=== PATIENT | female | born 1935 | race Caucasian/White ===

== ENCOUNTER 2016-08-31 16:05 | Inpatient (IN) | payer MEDICARE, OTHER ==
[~2016-08-31] VITALS: Ht 165.1 cm; Wt 65.3 kg
[~2016-08-31 16:05] MED LIST: ACETAMINOPHEN-1 EAC2 ORAL; CEPHALEXIN500 MG ORAL; CIPROFLOXACIN500 M2 ORAL; FIRST-BXN MOUT237 ML; FLUCONAZOLE150 MG ORAL; HUMIRA40 MG/0.8 SUBQ; KEFLEX500 MG ORAL; LACTULOSE20 GM/301 ORAL; METRONIDAZOLE500 MG ORAL; NKM; NORCO 5-325 TA1 EACH ORAL; TYLENOL #21 EA ORAL; VICODIN1 TA1 PO; VITAMIN D400 INTLU PO; [UNRECOGNIZED DRUG - OTHER] PO
[2016-08-31] MEDS ORDERED: HUMIRA40 MG/0.2 SUBQ ×2 (16:11→18:38)
[2016-08-31 16:15] VITALS: BP 119/65
--- NOTE | 2016-08-31 16:26 | Emergency Room Report ---
History of Present Illness General Chief Complaint: Dizziness Source: Patient, Significant Other, EMS Present Illness HPI The patient presents with weakness and altered mental status. Her blood pressure in the field was 80. Paramedics started a bolus of 250 of normal saline. She feels a little bit better at this time but still is weak and lethargic. The patient's had problems with hyponatremia in the past. She's never had problems with her blood pressure. She loses sodium in her urine. Her has been giving her sodium tablets. He is certain this is the problem. He denies benzos, narcotics, alcohol. Denies fever, chills, vomiting, diarrhea, dysuria. 2 weeks ago she had a procedure by Dr. Conway because she had some vaginal bleeding. She checked out okay according to the doctor at that time. The patient and spouse deny any pain or anxiety medication other than tylenol. No chest pain, palpitations, headache, rashes. She has chronic back pain and arthritis pain. She is legally blind.. Allergies: Coded Allergies: No Known Allergies (Unverified , 09/01/16) Patient History Past Medical History: see triage record Social History: Denies: smoking - former Social History Narrative Now: No Reviewed Nursing Documentation: PMH: Agreed, PSxH: Agreed Nursing Documentation-PMH Past Medical History: No History, Except For Hx Cardiac Problems: No - BLINDNESS Hx Hypertension: No - ARTHRITIS Hx Pacemaker: No - HYPONATREMIA Hx Asthma: No - RA Hx COPD: No Hx Cancer: No Hx Gastrointestinal Problems: Yes Hx Dialysis: No - HYPONATREMIA Hx Neurological Problems: Yes - RESTLESS LEGS Hx Cerebrovascular Accident: Yes Hx Seizures: No Hx Speech Problem: Yes - SINCE THE STROKE Hx Dizziness: Yes Review of Systems All Other Systems: negative except mentioned in HPI Physical Exam Vital Signs Date Time Temp Pulse Resp B/P Pulse Ox O2 Delivery O2 Flow Rate FiO2 08/31/16 15:48 58 20 92/46 100 Room Air Sp02 EP Interpretation: reviewed, normal General Appearance: no apparent distress, other - lethargic Head: normocephalic Eyes: bilateral eye Scleral Injection ENT: moist mucus membranes Neck: supple Respiratory: lungs clear, normal breath sounds Cardiovascular #1: regular rate, rhythm, no edema Cardiovascular #2: 2+ radial (R) Gastrointestinal: normal inspection, normal bowel sounds, non tender, no mass, non-distended Musculoskeletal: back normal, gait/station normal, normal range of motion Neurologic: alert, oriented x3, DTRs symmetric, sensory intact, motor weakness - diffuse, other - halting speech - lethargic Psychiatric: depressed affect, other - lethargy Skin: warm/dry, other - sallo Medical Decision Making Diagnostic Impression: Primary Impression: Hypotension (arterial) Qualified Codes: I95.9 - Hypotension, unspecified Additional Impression: Altered mental state Qualified Codes: R40.1 - Stupor ER Course Patient presents with lethargy and hypotension. Ddx; sepsis, dehydration, hyponatremia, occult infection, medication reaction amongst others. Non-focal neuro, doubt CT of head would be helpful. Emergent evaluation with labs, EKG. Treatment with IV hydration with NS and cardiac monitoring. Planned repeated evaluations. Labs with minimally low sodium and + tox for opiates. BP improved with hydration. No evidence of infectious source. still insisting the problem is her drinking tea which he believes causes hyponatremia. Patient now awake. BP improved. Needs continued monitoring to exclude cardiac cause. wants to take home. Explained need for further observation. now admits to tylenol codiene when told about + tox screen (much denial about why he denied this initially). Admit telemetry Dr. Diggs. Laboratory Tests Test 08/31/16 17:11 08/31/16 17:51 08/31/16 18:55 White Blood Count 6.6 K/UL (4.8-10.8) Red Blood Count 2.83 M/UL (4.20-5.40) L Hemoglobin 10.1 G/DL (12.0-16.0) L Hematocrit 27.9 % (37.0-47.0) L Mean Corpuscular Volume 99 FL (80-99) Mean Corpuscular Hemoglobin 35.8 PG (27.0-31.0) H Mean Corpuscular Hemoglobin Concent 36.4 G/DL (32.0-36.0) H Red Cell Distribution Width 13.3 % (11.6-14.8) Platelet Count 191 K/UL (150-450) Mean Platelet Volume 5.7 FL (6.5-10.1) L Neutrophils (%) (Auto) 49.9 % (45.0-75.0) Lymphocytes (%) (Auto) 41.4 % (20.0-45.0) Monocytes (%) (Auto) 6.7 % (1.0-10.0) Eosinophils (%) (Auto) 1.1 % (0.0-3.0) Basophils (%) (Auto) 0.9 % (0.0-2.0) Prothrombin Time 10.2 SEC (9.30-11.50) Prothrombin Time INR 1.0 (0.9-1.1) PTT 26 SEC (23-33) Lactic Acid Level 1.70 mmol/L (0.66-2.22) Troponin I < 0.30 ng/mL (<=0.30) Pro-B-Type Natriuretic Peptide 388 pg/mL (0-450) Urine Color Yellow Urine Appearance Slightly cloudy Urine pH 7 (4.5-8.0) Urine Specific [place] 1.010 (1.005-1.035) Urine Protein 2+ (NEGATIVE) H Urine Glucose (UA) Negative (NEGATIVE) Urine Ketones Negative (NEGATIVE) Urine Occult Blood 5+ (NEGATIVE) H Urine Nitrite Negative (NEGATIVE) Urine Bilirubin Negative (NEGATIVE) Urine Urobilinogen Normal MG/DL (0.0-1.0) Urine Leukocyte Esterase 2+ (NEGATIVE) H Urine RBC 5-10 /HPF (0 - 2) H Urine WBC 2-4 /HPF (0 - 2) Urine Squamous Epithelial Cells Few /LPF (NONE/OCC) Urine Bacteria Few /HPF (NONE) Urine Opiates Screen Positive (NEGATIVE) H Urine Barbiturates Screen Negative (NEGATIVE) Phencyclidine (PCP) Screen Negative (NEGATIVE) Urine Amphetamines Screen Negative (NEGATIVE) Urine Benzodiazepines Screen Negative (NEGATIVE) Urine Cocaine Screen Negative (NEGATIVE) Urine Marijuana (THC) Screen Negative (NEGATIVE) Sodium Level 134 mEQ/L (135-145) L Potassium Level 4.5 mEQ/L (3.4-4.9) Chloride Level 101 mEQ/L (98-107) Carbon Dioxide Level 21 mEQ/L (20-30) Anion Gap 12 (5-15) Blood Urea Nitrogen 18 mg/dL (7-23) Creatinine 0.8 mg/dL (0.5-0.9) Estimate Glomerular Filtration Rate mL/min (>60) Glucose Level 160 mg/dL (74-106) H Calcium Level 8.1 mg/dL (8.6-10.2) L Total Bilirubin < 0.2 mg/dL (0.0-1.2) Aspartate Amino Transferase (AST) 20 U/L (5-40) Alanine Aminotransferase (ALT) 16 U/L (3-33) Alkaline Phosphatase 75 U/L (35-104) Total Creatine Kinase 57 U/L (26-140) Total Protein 6.0 g/dL (6.6-8.7) L Albumin 2.8 g/dL (3.5-5.2) L Globulin 3.2 g/dL Albumin/Globulin Ratio 0.8 (1.0-2.7) L EKG Diagnostic Results Rate: normal Rhythm: NSR ST Segments: other - LVH with NSSTTW changes Rhythm Strip Diag. Results EP Interpretation: yes Rhythm: NSR, no PVC's, no ectopy Chest X-Ray Diagnostic Results EP Interpretation: Yes Findings: no consolidation, no effusion, no pneumothorax, no acute cardiopulmonary disease Number of Views: 1 Last Vital Signs Date Time Temp Pulse Resp B/P Pulse Ox O2 Delivery O2 Flow Rate FiO2 09/01/16 00:00 74 08/31/16 23:53 97.8 19 125/67 98 Room Air 08/31/16 22:06 21 Status: improved Disposition: ADMITTED INPATIENT Condition: Serious Brett Barksdale M.D. August 31, 2016 16:26
--- NOTE | 2016-08-31 17:16 | Diagnostic Imaging Report ---
Indications: Cough and shortness of breath Technique: Portable AP chest Findings: Comparison: 07/13/2015 Patient rotation limits evaluation. Cardiac silhouette remains upper limits of normal in size. Pulmonary vasculature remains within normal limits. Right lung remains clear.. Left costophrenic angle less distinct. Right remain sharp. Aortic arch calcification again noted. IMPRESSION: Decreased distinctness of left costophrenic angle likely secondary to patient rotation. Development of focal atelectasis, infiltrate, or pleural effusion not excludable. Upright PA and lateral chest radiographs with better inspiratory effort and optimal technique recommended for more complete evaluation. Stable chronic changes as described
[2016-08-31 17:53] LABS: BASOPHILS % (AUTO) 0.9 % (0.0-2.0); EOSINOPHILS % (AUTO) 1.1 % (0.0-3.0); LYMPHOCYTES % (AUTO) 41.4 % (20.0-45.0); MEAN CORPUSCULAR HEMOGLOBIN 35.8 PG (27.0-31.0); MEAN CORPUSCULAR HGB CONC 36.4 G/DL (32.0-36.0); MEAN CORPUSCULAR VOLUME 99 FL (80-99); MEAN PLATELET VOLUME 5.7 FL (6.5-10.1); MONOCYTES % (AUTO) 6.7 % (1.0-10.0); NEUTROPHILS % (AUTO) 49.9 % (45.0-75.0); PLATELET COUNT 191 K/UL (150-450); PROTHROMBIN TIME 10.2 SEC (9.30-11.50); RED BLOOD COUNT 2.83 M/UL (4.20-5.40); RED CELL DISTRIBUTION WIDTH 13.3 % (11.6-14.8); WHITE BLOOD COUNT 6.6 K/UL (4.8-10.8)
[2016-08-31 18:18] VITALS: BP 117/66
[2016-08-31] MEDS ORDERED: ACETAMINOPHEN-1 EAC4 ORAL (18:37)
[2016-08-31] MEDS ORDERED: PREMARIN42.5 GM VG (18:39)
[2016-08-31] MEDS ORDERED: FUROSEMIDE40 MG ORAL (18:40)
[2016-08-31] MEDS ORDERED: VESICARE10 MG ORAL (18:40)
[2016-08-31] MEDS ORDERED: GABAPENTIN600 MG ORAL (18:41)
[2016-08-31] MEDS ORDERED: PANTOPRAZOLE SO40 MG ORAL (18:43)
[2016-08-31] MEDS ORDERED: VOLTAREN100 G1 TP (18:46)
[2016-08-31] MEDS ORDERED: PRAMIPEXOLE D0.25 MG ORAL (18:46)
[2016-08-31] MEDS ORDERED: PROLIA60 MG/1 ML SUBQ (18:47)
[2016-08-31] MEDS ORDERED: TYLENOL325 MG ORAL (18:48)
[2016-08-31] MEDS ORDERED: SODIUM TABLET PO (18:49)
[2016-08-31 19:02] LABS: TROPONIN I < 0.30 ng/mL (<=0.30)
[2016-08-31 19:09] LABS: APPEARANCE,URINE SLIGHTLY CLOUDY; KETONES,URINE NEGATIVE (NEGATIVE); LEUKOCYTE ESTERASE ,URINE 2+ (NEGATIVE); NITRITE,URINE NEGATIVE (NEGATIVE); PH,URINE 7 (4.5-8.0); PROTEIN,URINE 2+ (NEGATIVE); UROBILINOGEN,URINE NORMAL MG/DL (0.0-1.0)
[2016-08-31 19:21] LABS: BACTERIA,URINE FEW /HPF; SQUAMOUS EPITHELIAL CELL,UR FEW /LPF (NONE/OCC)
[2016-08-31 19:34] LABS: ALANINE AMINOTRANSFERASE 16 U/L (3-33); ALBUMIN/GLOBULIN RATIO 0.8 (1.0-2.7); ANION GAP 12 (5-15); ASPARTATE AMINO TRANSFERASE 20 U/L (5-40); CALCIUM 8.1 mg/dL (8.6-10.2); CARBON DIOXIDE 21 mEQ/L (20-30); CHLORIDE 101 mEQ/L (98-107); CREATININE 0.8 mg/dL (0.5-0.9); HEMOLYSIS 4; POTASSIUM 4.5 mEQ/L (3.4-4.9); SODIUM 134 mEQ/L (135-145)
[2016-08-31 21:24] VITALS: BP 134/61
[2016-08-31] MEDS ORDERED: LORazepam Inj 2mg/ml 1ml IV PRN (21:30)
[2016-08-31] MEDS ORDERED: Nitroglycerin Subl 0.4mg tab (Bottle Of 25) SL PRN (21:30)
[2016-08-31] MEDS ORDERED: Mylanta II UD 30ml ORAL PRN (21:30)
[2016-08-31] MEDS ORDERED: Morphine Sulfate 2mg/ml Inj IVP PRN (21:30)
[2016-08-31] MEDS ORDERED: DuoNeb 0.5-3(2.5)mg/3ml neb HHN PRN (21:30)
[2016-08-31] MEDS ORDERED: Miralax 17gm pkt ORAL PRN (21:30)
--- NOTE | 2016-08-31 21:30 | Consultation ---
History of Present Illness General Date patient seen: August 31, 2016 Chief Complaint: Dizziness Referring physician: Dr. Fonseca Reason for Consultation: Inpatient management Present Illness HPI 81 year old female with hx of RA, on Humira, [place] [facility] CC of weakness and altered mental status. Her blood pressure in the field was 80. Paramedics started a bolus of 250 of normal saline. She feels a little bit better at this time but still is weak. The patient's had problems with hyponatremia in the past. She's never had problems with her blood pressure. She loses sodium in her urine. Her has been giving herself tablets. He is certain this is the problem. She takes lasix because she gets sometime "bloated if she drinks too much water." She was also found to be anemic and admitted to Telemetry for further work up. Allergies: Coded Allergies: ASPIRIN (Verified Allergy, Unknown, RASH, BRUISE, 06/25/11) Medication History Scheduled Furosemide* (Lasix*), 40 MG ORAL DAILY, (Reported) Gabapentin* (Gabapentin*), 600 MG ORAL DAILY, (Reported) Pantoprazole* (Pantoprazole*), 40 MG ORAL DAILY, (Reported) Pramipexole* (Mirapex*), 0.5 MG ORAL DAILY, (Reported) Solifenacin Succinate (Vesicare*), 10 MG ORAL DAILY, (Reported) Scheduled PRN Acetaminophen (Tylenol), 325 MG ORAL Q6H PRN for For Pain, (Reported) Acetaminophen With Codeine 300MG/60MG* (Acetaminophen With Codeine #4 Tab*), 1 TAB ORAL Q6H PRN for For Pain, (Reported) Miscellaneous Medications Adalimumab (Humira), 40 MG SUBQ, (Reported) Denosumab (Prolia), Unknown Dose SUBQ, (Reported) Diclofenac Sodium (Voltaren), Unknown Dose TP, (Reported) Estrogens Conjugated (Premarin), Unknown Dose VG, (Reported) [Sodium Tablet], Unknown Dose PO, (Reported) Patient History Healthcare decision maker Resuscitation status Advanced Directive on File Past Medical/Surgical History Past Medical/Surgical History: (1) Rheumatoid arteritis (2) Osteoporosis Review of Systems Constitutional: Reports: malaise, weakness Physical Exam General Appearance: WD/WN Lines, tubes and drains: peripheral, PICC HEENT: normocephalic, atraumatic Neck: non-tender, normal alignment Respiratory/Chest: chest wall non-tender, lungs clear Cardiovascular/Chest: normal peripheral pulses, normal rate Abdomen: normal bowel sounds, non tender Genitourinary/Rectal: normal genital exam Last 24 Hour Vital Signs Date Time Temp Pulse Resp B/P Pulse Ox O2 Delivery O2 Flow Rate FiO2 08/31/16 21:24 98.2 67 16 134/61 99 Room Air 08/31/16 18:18 98.2 66 20 117/66 100 Room Air 08/31/16 16:15 98.2 60 20 119/65 100 Room Air 08/31/16 15:48 58 20 92/46 100 Room Air Laboratory Tests Test 08/31/16 17:11 08/31/16 17:51 08/31/16 18:55 White Blood Count 6.6 K/UL (4.8-10.8) Red Blood Count 2.83 M/UL (4.20-5.40) L Hemoglobin 10.1 G/DL (12.0-16.0) L Hematocrit 27.9 % (37.0-47.0) L Mean Corpuscular Volume 99 FL (80-99) Mean Corpuscular Hemoglobin 35.8 PG (27.0-31.0) H Mean Corpuscular Hemoglobin Concent 36.4 G/DL (32.0-36.0) H Red Cell Distribution Width 13.3 % (11.6-14.8) Platelet Count 191 K/UL (150-450) Mean Platelet Volume 5.7 FL (6.5-10.1) L Neutrophils (%) (Auto) 49.9 % (45.0-75.0) Lymphocytes (%) (Auto) 41.4 % (20.0-45.0) Monocytes (%) (Auto) 6.7 % (1.0-10.0) Eosinophils (%) (Auto) 1.1 % (0.0-3.0) Basophils (%) (Auto) 0.9 % (0.0-2.0) Prothrombin Time 10.2 SEC (9.30-11.50) Prothromb Time International Ratio 1.0 (0.9-1.1) Activated Partial Thromboplast Time 26 SEC (23-33) Lactic Acid Level 1.70 mmol/L (0.66-2.22) Troponin I < 0.30 ng/mL (<=0.30) Pro-B-Type Natriuretic Peptide 388 pg/mL (0-450) Urine Color Yellow Urine Appearance Slightly cloudy Urine pH 7 (4.5-8.0) Urine Specific [place] 1.010 (1.005-1.035) Urine Protein 2+ (NEGATIVE) H Urine Glucose (UA) Negative (NEGATIVE) Urine Ketones Negative (NEGATIVE) Urine Occult Blood 5+ (NEGATIVE) H Urine Nitrite Negative (NEGATIVE) Urine Bilirubin Negative (NEGATIVE) Urine Urobilinogen Normal MG/DL (0.0-1.0) Urine Leukocyte Esterase 2+ (NEGATIVE) H Urine RBC 5-10 /HPF (0 - 2) H Urine WBC 2-4 /HPF (0 - 2) Urine Squamous Epithelial Cells Few /LPF (NONE/OCC) Urine Bacteria Few /HPF (NONE) Urine Opiates Screen Positive (NEGATIVE) H Urine Barbiturates Screen Negative (NEGATIVE) Phencyclidine (PCP) Screen Negative (NEGATIVE) Urine Amphetamines Screen Negative (NEGATIVE) Urine Benzodiazepines Screen Negative (NEGATIVE) Urine Cocaine Screen Negative (NEGATIVE) Urine Marijuana (THC) Screen Negative (NEGATIVE) Sodium Level 134 mEQ/L (135-145) L Potassium Level 4.5 mEQ/L (3.4-4.9) Chloride Level 101 mEQ/L (98-107) Carbon Dioxide Level 21 mEQ/L (20-30) Anion Gap 12 (5-15) Blood Urea Nitrogen 18 mg/dL (7-23) Creatinine 0.8 mg/dL (0.5-0.9) Estimat Glomerular Filtration Rate mL/min (>60) Glucose Level 160 mg/dL (74-106) H Calcium Level 8.1 mg/dL (8.6-10.2) L Total Bilirubin < 0.2 mg/dL (0.0-1.2) Aspartate Amino Transf (AST/SGOT) 20 U/L (5-40) Alanine Aminotransferase (ALT/SGPT) 16 U/L (3-33) Alkaline Phosphatase 75 U/L (35-104) Total Creatine Kinase 57 U/L (26-140) Total Protein 6.0 g/dL (6.6-8.7) L Albumin 2.8 g/dL (3.5-5.2) L Globulin 3.2 g/dL Albumin/Globulin Ratio 0.8 (1.0-2.7) L Height (Feet): 5 Height (Inches): 3.00 Weight (Pounds): 140 Medications Current Medications Medications (Trade) Dose Ordered Sig/Nusrat Route PRN Reason Start Time Stop Time Status Last Admin Dose Admin Sodium Chloride (Sodium Chloride 1000ml bag) 1,000 ml @ 300 mls/hr Q3H20M IV 08/31/16 16:15 09/30/16 16:14 08/31/16 19:37 Assessment/Plan Problem List: (1) Hypotension (arterial) ICD Codes: I95.9 - Hypotension, unspecified SNOMED: 66327512 Qualifiers: Qualified Codes: I95.9 - Hypotension, unspecified (2) Overuse of medication ICD Codes: Z91.14 - Patient's other noncompliance with medication regimen SNOMED: 274945137 (3) Rheumatoid arteritis ICD Codes: I00 - Rheumatic fever without heart involvement SNOMED: 478289429 (4) Anemia ICD Codes: D64.9 - Anemia, unspecified SNOMED: 789529687 (5) Osteoporosis ICD Codes: M81.0 - Age-related osteoporosis without current pathological fracture SNOMED: 92860385 Assessment/Plan echo iv fluids anemia w/u cardiac w/u dvt prophylaxis DELORIS FRYE August 31, 2016 21:30
[2016-08-31 21:58] VITALS: BP 139/75
[2016-08-31 23:53] VITALS: BP 125/67
[2016-09-01 04:20] VITALS: BP 120/66
[2016-09-01 07:21] LABS: PROTHROMBIN TIME 10.1 SEC (9.30-11.50)
[2016-09-01 07:23] LABS: BASOPHILS % (AUTO) 0.6 % (0.0-2.0); EOSINOPHILS % (AUTO) 1.5 % (0.0-3.0); LYMPHOCYTES % (AUTO) 45.9 % (20.0-45.0); MEAN CORPUSCULAR HEMOGLOBIN 33.4 PG (27.0-31.0); MEAN CORPUSCULAR HGB CONC 33.2 G/DL (32.0-36.0); MEAN CORPUSCULAR VOLUME 101 FL (80-99); MEAN PLATELET VOLUME 6.6 FL (6.5-10.1); MONOCYTES % (AUTO) 6.7 % (1.0-10.0); NEUTROPHILS % (AUTO) 45.3 % (45.0-75.0); PLATELET COUNT 198 K/UL (150-450); RED BLOOD COUNT 2.95 M/UL (4.20-5.40); RED CELL DISTRIBUTION WIDTH 13.7 % (11.6-14.8); WHITE BLOOD COUNT 6.3 K/UL (4.8-10.8)
[2016-09-01 07:37] LABS: LACTATE DEHYDROGENASE 246 U/L (135-230)
[2016-09-01 07:46] LABS: HEMOLYSIS 3; IRON 56 ug/dL (37-145); TOTAL IRON BINDING CAPACITY 241 ug/dL (250-400)
[2016-09-01 07:51] LABS: ALANINE AMINOTRANSFERASE 15 U/L (3-33); ALBUMIN/GLOBULIN RATIO 0.9 (1.0-2.7); ANION GAP 12 (5-15); ASPARTATE AMINO TRANSFERASE 21 U/L (5-40); CALCIUM 8.2 mg/dL (8.6-10.2); CARBON DIOXIDE 23 mEQ/L (20-30); CHLORIDE 103 mEQ/L (98-107); CHOLESTEROL 155 mg/dL (< 200); CHOLESTEROL/HDL RATIO 2.5 (3.3-4.4); CREATININE 0.8 mg/dL (0.5-0.9); HEMOLYSIS 4; LDL CHOLESTEROL (CALC.) 80 mg/dL (60-99); POTASSIUM 4.8 mEQ/L (3.4-4.9); SODIUM 138 mEQ/L (135-145)
[2016-09-01 07:59] VITALS: BP 119/56
[2016-09-01] MEDS: Pramipexole 0.5mg tab ORAL SCH (08:09)
[2016-09-01] MEDS: Solifenacin 10mg tab ORAL SCH (08:09)
[2016-09-01] MEDS: Heparin 5000 units/ml inj SUBQ SCH ×2 (08:11→21:36)
[2016-09-01 09:10] LABS: ERYTHROCYTE SEDIMENTATION RATE 78 MM/HR (0-42)
[2016-09-01 10:40] LABS: RETICULOCYTE COUNT 1.8 % (0.0-2.0)
[2016-09-01 10:55] LABS: BAND NEUTROPHILS % (MANUAL) 0 % (0-8); BASOPHILS % (MANUAL) 0 % (0-2); EOSINOPHILS % (MANUAL) 2 % (0-3); LYMPHOCYTES % (MANUAL) 44 % (20-45); NEUTROPHILS % (MANUAL) 43 % (45-75); PLATELET ESTIMATE ADEQUATE; PLATELET MORPHOLOGY NORMAL; TOTAL CELLS COUNTED 100
[2016-09-01 11:02] LABS: PATH BLOOD SMEAR/OMC SENT TO PATHOLOGIST
[2016-09-01 11:46] VITALS: BP 131/65
--- NOTE | 2016-09-01 13:18 | Pulmonology Progress Note ---
Assessment/Plan Problems: (1) Hypotension (arterial) (2) Overuse of medication (3) Rheumatoid arteritis (4) Anemia (5) Osteoporosis Assessment/Plan improving w/u in process check echo. wants to leave possibly AMA Subjective ROS Limited/Unobtainable: No Interval Events: asymptomatic, wants to go home Allergies: Coded Allergies: ASPIRIN (Verified Allergy, Unknown, RASH, BRUISE, 06/25/11) Objective Last 24 Hour Vital Signs Date Time Temp Pulse Resp B/P Pulse Ox O2 Delivery O2 Flow Rate FiO2 09/01/16 11:46 97.0 58 20 131/65 99 Room Air 09/01/16 08:00 63 09/01/16 07:59 97.0 63 20 119/56 100 Room Air 09/01/16 07:30 64 18 Room Air 21 09/01/16 04:20 98.3 56 18 120/66 99 Room Air 09/01/16 04:00 51 09/01/16 00:00 74 08/31/16 23:53 97.8 74 19 125/67 98 Room Air 08/31/16 23:42 97.8 08/31/16 22:07 61 08/31/16 22:06 69 18 Room Air 21 08/31/16 21:58 96.4 69 18 139/75 96 Room Air 08/31/16 21:34 98.2 67 16 134/61 99 Room Air 08/31/16 21:24 98.2 67 16 134/61 99 Room Air 08/31/16 18:18 98.2 66 20 117/66 100 Room Air 08/31/16 16:15 98.2 60 20 119/65 100 Room Air 08/31/16 15:48 58 20 92/46 100 Room Air Intake and Output 08/31/16 09/01/16 19:00 07:00 Intake Total 1000 ml Balance 1000 ml Intake Oral 0 ml IV Total 1000 ml # Voids 1 1 General Appearance: WD/WN HEENT: normocephalic, atraumatic Respiratory/Chest: chest wall non-tender, lungs clear Breasts: no masses Cardiovascular: normal peripheral pulses Abdomen: normal bowel sounds, soft, non tender Extremities: no cyanosis, no clubbing 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 Laboratory Tests 08/31/16 17:11: White Blood Count 6.6, Red Blood Count 2.83L, Hemoglobin 10.1L, Hematocrit 27.9L , Mean Corpuscular Volume 99, Mean Corpuscular Hemoglobin 35.8H, Mean Corpuscular Hemoglobin Concent 36.4H, Red Cell Distribution Width 13.3, Platelet Count 191, Mean Platelet Volume 5.7L, Neutrophils (%) (Auto) 49.9, Lymphocytes (%) (Auto) 41.4, Monocytes (%) (Auto) 6.7, Eosinophils (%) (Auto) 1.1, Basophils (%) (Auto) 0.9, Prothrombin Time 10.2, Prothromb Time International Ratio 1.0, Activated Partial Thromboplast Time 26, Lactic Acid Level 1.70, Troponin I < 0.30, Pro-B-Type Natriuretic Peptide 388 08/31/16 17:51: Urine Color Yellow, Urine Appearance Slightly cloudy, Urine pH 7, Urine Specific [place] 1.010, Urine Protein 2+H, Urine Glucose (UA) Negative, Urine Ketones Negative, Urine Occult Blood 5+H, Urine Nitrite Negative, Urine Bilirubin Negative, Urine Urobilinogen Normal, Urine Leukocyte Esterase 2+H, Urine RBC 5-10H, Urine WBC 2-4, Urine Squamous Epithelial Cells Few, Urine Bacteria Few, Urine Opiates Screen PositiveH, Urine Barbiturates Screen Negative , Phencyclidine (PCP) Screen Negative, Urine Amphetamines Screen Negative, Urine Benzodiazepines Screen Negative, Urine Cocaine Screen Negative, Urine Marijuana (THC) Screen Negative 08/31/16 18:55: Sodium Level 134L, Potassium Level 4.5, Chloride Level 101, Carbon Dioxide Level 21, Anion Gap 12, Blood Urea Nitrogen 18, Creatinine 0.8, Estimat Glomerular Filtration Rate , Glucose Level 160H, Calcium Level 8.1L, Total Bilirubin < 0.2, Aspartate Amino Transf (AST/SGOT) 20, Alanine Aminotransferase (ALT/SGPT) 16, Alkaline Phosphatase 75, Total Creatine Kinase 57, Total Protein 6.0L, Albumin 2.8L, Globulin 3.2, Albumin/Globulin Ratio 0.8L 09/01/16 05:31: White Blood Count 6.3, Red Blood Count 2.95L, Hemoglobin 9.9L, Hematocrit 29.7L , Mean Corpuscular Volume 101H, Mean Corpuscular Hemoglobin 33.4H, Mean Corpuscular Hemoglobin Concent 33.2, Red Cell Distribution Width 13.7, Platelet Count 198, Mean Platelet Volume 6.6, Neutrophils (%) (Auto) 45.3, Lymphocytes (% ) (Auto) 45.9H, Monocytes (%) (Auto) 6.7, Eosinophils (%) (Auto) 1.5, Basophils (%) (Auto) 0.6, Prothrombin Time 10.1, Prothromb Time International Ratio 1.0, Activated Partial Thromboplast Time 29, Sodium Level 138, Potassium Level 4.8, Chloride Level 103, Carbon Dioxide Level 23, Anion Gap 12, Blood Urea Nitrogen 14, Creatinine 0.8, Estimat Glomerular Filtration Rate , Glucose Level 98, Calcium Level 8.2L, Total Bilirubin 0.2, Aspartate Amino Transf (AST/SGOT) 21, Alanine Aminotransferase (ALT/SGPT) 15, Alkaline Phosphatase 68, Total Protein 6.0L, Albumin 2.9L, Globulin 3.1, Albumin/Globulin Ratio 0.9L, Differential Total Cells Counted 100, Neutrophils % (Manual) 43L, Lymphocytes % (Manual) 44, Monocytes % (Manual) 11H, Eosinophils % (Manual) 2, Basophils % (Manual) 0, Band Neutrophils 0, Platelet Estimate Adequate, Platelet Morphology Normal, Red Blood Cell Morphology Normal, Anisocytosis , Macrocytosis , Erythrocyte Sedimentation Rate 78H, Reticulocyte Count 1.8, Iron Level 56, Total Iron Binding Capacity 241L, Percent Iron Saturation 23, Unsaturated Iron Binding 185 , Lactate Dehydrogenase 246H, Triglycerides Level 61, Cholesterol Level 155, LDL Cholesterol 80, HDL Cholesterol 63H, Cholesterol/HDL Ratio 2.5L, Carcinoembryonic Antigen 3.9H, Vitamin B12 Level 625, Folate [Pending], Thyroid Stimulating Hormone (TSH) 4.260 Current Medications Medications (Trade) Dose Ordered Sig/Nusrat Route PRN Reason Start Time Stop Time Status Last Admin Dose Admin Acetaminophen (Tylenol) 650 mg Q4H PRN ORAL Fever/Headache/Mild Pain 09/01/16 11:00 10/01/16 10:59 09/01/16 10:53 Al Hydroxide/Mg Hydroxide (Mylanta II) 30 ml Q6H PRN ORAL dyspepsia 08/31/16 21:30 09/30/16 21:29 Albuterol/ Ipratropium (DuoNeb 0.5-3(2.5)mg/3ml) 3 ml Q4H PRN HHN Shortness of Breath 08/31/16 21:30 09/05/16 21:29 Clonidine HCl (Catapres) 0.1 mg Q4H PRN ORAL SBP>160 mmHg 08/31/16 21:30 09/30/16 21:29 Dextrose (Dextrose 50%) STAT PRN IV Hypoglycemia 08/31/16 21:30 09/30/16 21:29 Gabapentin (Neurontin) 600 mg DAILY ORAL 09/01/16 09:00 10/01/16 08:59 09/01/16 08:09 Heparin Sodium (Porcine) (Heparin 5000 units/ml) 5,000 units EVERY 12 HOURS SUBQ 09/01/16 09:00 10/01/16 08:59 09/01/16 08:11 Lorazepam (Ativan 2mg/ml 1ml) 0.5 mg Q4H PRN IV For Anxiety 08/31/16 21:30 09/07/16 21:29 Morphine Sulfate (Morphine Sulfate) 1 mg Q4H PRN IVP Severe Pain (Pain Scale 7-10) 08/31/16 21:30 09/07/16 21:29 Nitroglycerin (Ntg) 0.4 mg Q5M X 3 DOSES PRN SL Prn Chest Pain 08/31/16 21:30 09/30/16 21:29 Ondansetron HCl (Zofran) 4 mg Q6H PRN IVP Nausea & Vomiting 08/31/16 21:30 09/30/16 21:29 Polyethylene Glycol (Miralax) 17 gm HSPRN PRN ORAL Constipation 08/31/16 21:30 09/30/16 21:29 Pramipexole (Mirapex) 0.5 mg DAILY ORAL 09/01/16 09:00 10/01/16 08:59 09/01/16 08:09 Solifenacin (Vesicare) 10 mg DAILY ORAL 09/01/16 09:00 10/01/16 08:59 09/01/16 08:09 Temazepam (Restoril) 15 mg HSPRN PRN ORAL Insomnia 08/31/16 21:30 09/07/16 21:29 09/01/16 00:20 DELORIS FRYE September 01, 2016 13:18
[2016-09-01 15:32] VITALS: BP 115/59
--- NOTE | 2016-09-01 16:53 | Cardiac Electrophysiology PN ---
Subjective Subjective [id number] Objective Last 24 Hour Vital Signs Date Time Temp Pulse Resp B/P Pulse Ox O2 Delivery O2 Flow Rate FiO2 09/01/16 15:32 97.2 58 18 115/59 98 Room Air 09/01/16 12:00 59 09/01/16 11:46 97.0 58 20 131/65 99 Room Air 09/01/16 08:00 63 09/01/16 07:59 97.0 63 20 119/56 100 Room Air 09/01/16 07:30 64 18 Room Air 21 09/01/16 04:20 98.3 56 18 120/66 99 Room Air 09/01/16 04:00 51 09/01/16 00:00 74 08/31/16 23:53 97.8 74 19 125/67 98 Room Air 08/31/16 23:42 97.8 08/31/16 22:07 61 08/31/16 22:06 69 18 Room Air 21 08/31/16 21:58 96.4 69 18 139/75 96 Room Air 08/31/16 21:34 98.2 67 16 134/61 99 Room Air 08/31/16 21:24 98.2 67 16 134/61 99 Room Air 08/31/16 18:18 98.2 66 20 117/66 100 Room Air Intake and Output 08/31/16 09/01/16 19:00 07:00 Intake Total 1000 ml Balance 1000 ml Intake Oral 0 ml IV Total 1000 ml # Voids 1 1 Laboratory Tests Test 08/31/16 17:11 08/31/16 17:51 08/31/16 18:55 09/01/16 05:31 White Blood Count 6.6 K/UL (4.8-10.8) 6.3 K/UL (4.8-10.8) Red Blood Count 2.83 M/UL (4.20-5.40) L 2.95 M/UL (4.20-5.40) L Hemoglobin 10.1 G/DL (12.0-16.0) L 9.9 G/DL (12.0-16.0) L Hematocrit 27.9 % (37.0-47.0) L 29.7 % (37.0-47.0) L Mean Corpuscular Volume 99 FL (80-99) 101 FL (80-99) H Mean Corpuscular Hemoglobin 35.8 PG (27.0-31.0) H 33.4 PG (27.0-31.0) H Mean Corpuscular Hemoglobin Concent 36.4 G/DL (32.0-36.0) H 33.2 G/DL (32.0-36.0) Red Cell Distribution Width 13.3 % (11.6-14.8) 13.7 % (11.6-14.8) Platelet Count 191 K/UL (150-450) 198 K/UL (150-450) Mean Platelet Volume 5.7 FL (6.5-10.1) L 6.6 FL (6.5-10.1) Neutrophils (%) (Auto) 49.9 % (45.0-75.0) 45.3 % (45.0-75.0) Lymphocytes (%) (Auto) 41.4 % (20.0-45.0) 45.9 % (20.0-45.0) H Monocytes (%) (Auto) 6.7 % (1.0-10.0) 6.7 % (1.0-10.0) Eosinophils (%) (Auto) 1.1 % (0.0-3.0) 1.5 % (0.0-3.0) Basophils (%) (Auto) 0.9 % (0.0-2.0) 0.6 % (0.0-2.0) Prothrombin Time 10.2 SEC (9.30-11.50) 10.1 SEC (9.30-11.50) Prothromb Time International Ratio 1.0 (0.9-1.1) 1.0 (0.9-1.1) Activated Partial Thromboplast Time 26 SEC (23-33) 29 SEC (23-33) Lactic Acid Level 1.70 mmol/L (0.66-2.22) Troponin I < 0.30 ng/mL (<=0.30) Pro-B-Type Natriuretic Peptide 388 pg/mL (0-450) Urine Color Yellow Urine Appearance Slightly cloudy Urine pH 7 (4.5-8.0) Urine Specific [place] 1.010 (1.005-1.035) Urine Protein 2+ (NEGATIVE) H Urine Glucose (UA) Negative (NEGATIVE) Urine Ketones Negative (NEGATIVE) Urine Occult Blood 5+ (NEGATIVE) H Urine Nitrite Negative (NEGATIVE) Urine Bilirubin Negative (NEGATIVE) Urine Urobilinogen Normal MG/DL (0.0-1.0) Urine Leukocyte Esterase 2+ (NEGATIVE) H Urine RBC 5-10 /HPF (0 - 2) H Urine WBC 2-4 /HPF (0 - 2) Urine Squamous Epithelial Cells Few /LPF (NONE/OCC) Urine Bacteria Few /HPF (NONE) Urine Opiates Screen Positive (NEGATIVE) H Urine Barbiturates Screen Negative (NEGATIVE) Phencyclidine (PCP) Screen Negative (NEGATIVE) Urine Amphetamines Screen Negative (NEGATIVE) Urine Benzodiazepines Screen Negative (NEGATIVE) Urine Cocaine Screen Negative (NEGATIVE) Urine Marijuana (THC) Screen Negative (NEGATIVE) Sodium Level 134 mEQ/L (135-145) L 138 mEQ/L (135-145) Potassium Level 4.5 mEQ/L (3.4-4.9) 4.8 mEQ/L (3.4-4.9) Chloride Level 101 mEQ/L (98-107) 103 mEQ/L (98-107) Carbon Dioxide Level 21 mEQ/L (20-30) 23 mEQ/L (20-30) Anion Gap 12 (5-15) 12 (5-15) Blood Urea Nitrogen 18 mg/dL (7-23) 14 mg/dL (7-23) Creatinine 0.8 mg/dL (0.5-0.9) 0.8 mg/dL (0.5-0.9) Estimat Glomerular Filtration Rate mL/min (>60) mL/min (>60) Glucose Level 160 mg/dL (74-106) H 98 mg/dL (74-106) Calcium Level 8.1 mg/dL (8.6-10.2) L 8.2 mg/dL (8.6-10.2) L Total Bilirubin < 0.2 mg/dL (0.0-1.2) 0.2 mg/dL (0.0-1.2) Aspartate Amino Transf (AST/SGOT) 20 U/L (5-40) 21 U/L (5-40) Alanine Aminotransferase (ALT/SGPT) 16 U/L (3-33) 15 U/L (3-33) Alkaline Phosphatase 75 U/L (35-104) 68 U/L (35-104) Total Creatine Kinase 57 U/L (26-140) Total Protein 6.0 g/dL (6.6-8.7) L 6.0 g/dL (6.6-8.7) L Albumin 2.8 g/dL (3.5-5.2) L 2.9 g/dL (3.5-5.2) L Globulin 3.2 g/dL 3.1 g/dL Albumin/Globulin Ratio 0.8 (1.0-2.7) L 0.9 (1.0-2.7) L Differential Total Cells Counted 100 Neutrophils % (Manual) 43 % (45-75) L Lymphocytes % (Manual) 44 % (20-45) Monocytes % (Manual) 11 % (1-10) H Eosinophils % (Manual) 2 % (0-3) Basophils % (Manual) 0 % (0-2) Band Neutrophils 0 % (0-8) Platelet Estimate Adequate Platelet Morphology Normal Red Blood Cell Morphology Normal Anisocytosis Macrocytosis Erythrocyte Sedimentation Rate 78 MM/HR (0-42) H Reticulocyte Count 1.8 % (0.0-2.0) Iron Level 56 ug/dL (37-145) Total Iron Binding Capacity 241 ug/dL (250-400) L Percent Iron Saturation 23 % (15-50) Unsaturated Iron Binding 185 ug/dL (112-346) Lactate Dehydrogenase 246 U/L (135-230) H Triglycerides Level 61 mg/dL (< 150) Cholesterol Level 155 mg/dL (< 200) LDL Cholesterol 80 mg/dL (60-99) HDL Cholesterol 63 mg/dL (> 60) H Cholesterol/HDL Ratio 2.5 (3.3-4.4) L Carcinoembryonic Antigen 3.9 ng/mL H Vitamin B12 Level 625 pg/mL (211-946) Folate Pending Thyroid Stimulating Hormone (TSH) 4.260 uIU/mL (0.300-4.500) CHATA AVILES September 01, 2016 16:52
--- NOTE | 2016-09-01 17:08 | History & Physical ---
History and Physical History & Physicial Johnathon Diggs MD September 01, 2016 17:08
--- NOTE | 2016-09-01 18:28 | Diagnostic Imaging Report ---
APPROVED REPORT CPT Code: 22102 Present Symptoms Lower Extremity Edema: Bilateral BILATERAL: Imaging reveals a patent deep venous system bilaterally. There is no evidence of thrombus within the femoral, popliteal or tibial segments. The greater saphenous veins are also within normal limits. Doppler indicates normal spontaneous flow within these segments.
--- NOTE | 2016-09-01 18:29 | Diagnostic Imaging Report ---
APPROVED REPORT CPT Code: 72765 Vascular Symptoms CVA/TIA: Doppler Spectral Velocity Analysis RightLeft BILATERAL: CCA/BULB - Imaging reveals irregular, minimal plaque in both carotid bulbs. arteries. The Doppler spectral flow analysis is within normal limits throughout the internal and external carotid arteries. VERTEBRALS - Imaging reveals both vertebral arteries to be patent, without evidence of stenosis or steal.
--- NOTE | 2016-09-01 18:59 | Cardiology Report ---
APPROVED REPORT EKG Measurement Heart [id number] Sinus bradycardia Minimal voltage criteria for LVH, may be normal variant Borderline ECG
--- NOTE | 2016-09-01 19:17 | Cardiology Report ---
APPROVED REPORT EXAM: Two-dimensional and M-mode echocardiogram with Doppler and color Doppler. INDICATION Left ventricular function M-Mode DIMENSIONS IVSd0.9 (0.7-1.1cm)Left Atrium (MM)4.2 (1.6-4.0cm) LVDd4.7 (3.5-5.6cm)Aortic Root2.6 (2.0-3.7cm) PWd0.7 (0.7-1.1cm)Aortic Cusp Exc.1.6 (1.5-2.0cm) LVDs2.5 (2.5-4.0cm) PWs1.7 cm Technically difficult study due to poor acoustic windows. Normal left ventricular chamber size, systolic function and wall motion. Left ventricular ejection fraction estimated to be 60-65%. Mild left ventricular hypertrophy. Small posterior pericardial effusion. All other cardiac chamber sizes are within normal limits. Focal aortic valve sclerosis with adequate cusp excursion Thickened mitral valve leaflets with normal excursion. Mild mitral annulus and aortic root calcification. Pulmonic valve not well visualized. Normal tricuspid valve structure. IVC not obtainable. A color flow and spectral Doppler study was performed and revealed: Mild aortic regurgitation. No mitral regurgitation. Left ventricular diastolic dysfunction grade 1. Trace tricuspid regurgitation. Tricuspid systolic velocities suggests peak right ventricular systolic pressure of 11 mmHg Pulmonic regurgitation present.
[2016-09-01 20:10] VITALS: BP 127/75
--- NOTE | 2016-09-01 20:18 | General Progress Note ---
Progress Note Progress Note [id number] full note dictated SOMMER HAMEED September 01, 2016 20:18
[2016-09-02 00:23] VITALS: BP 144/74
--- NOTE | 2016-09-02 00:46 | Consultation ---
DATE OF CONSULTATION: 09/01/2016 CARDIOLOGY CONSULTATION CONSULTING PHYSICIAN: Luis Cummings M.D. REFERRING PHYSICIAN: Johnathon Diggs M.D. REASON FOR CONSULTATION: Hypotension and bradycardia on EKG. History Of Present Illness: The patient is a very pleasant 81-year-old lady with history of rheumatoid arthritis under the management of 00:20, who presented to [facility] emergency room for weakness and altered mental status. Her blood pressure in the telemetry was in the 80s. The patient received 250 mL of normal saline and felt slightly better. The patient apparently has been taking off and on Lasix for intent leg edema. The patient denies any hypertension or congestive heart failure or coronary artery disease. The patient apparently has been having vaginal bleeding for which she had seen a pilot plant operator and had an ultrasound that reportedly was negative. The patient also has history of hyponatremia for which she has been eating salt tablets. The patient underwent electrocardiogram that showed sinus bradycardia with a rate of 58. Her echocardiogram was performed today that showed normal left ventricular systolic function and ejection fraction of 55%. PAST MEDICAL HISTORY: Includes, 1. Rheumatoid arthritis. 2. Osteoporosis. MEDICATIONS: Per reconciliation. FAMILY HISTORY: Noncontributory. SOCIAL HISTORY: She lives with her . She does not smoke or drink alcohol. REVIEW OF SYSTEMS: Review of systems was thoroughly performed and was negative other than what is mentioned in the history of present illness. PHYSICAL EXAMINATION: VITAL SIGNS: Blood pressure is 111/59, pulse is 58, respirations 18, and she is afebrile. HEAD AND NECK: Showed no JVD or carotid bruits. LUNGS: Clear. CARDIOVASCULAR: Shows regular S1 and S2 with no gallop or murmur. ABDOMEN: Soft. EXTREMITIES: Trace pitting edema. LABORATORY DATA: Her labs show white count of 6.3, hemoglobin 9.9, hematocrit of 29.7, and platelet count is 198,000. Sodium 138, potassium 4.8, BUN of 14, creatinine 0.8, and glucose of 98. Her troponin was negative. Her urine toxicology was positive for opiates. INR is 1. ASSESSMENT AND PLAN: 1. Hypotension with a blood pressure in the 80s. This is likely due to dehydration, as the patient received Lasix. The blood pressure since then has improved without any specific intervention. The patient is not on any antihypertensive agents. Her echocardiogram showed normal left ventricular systolic function with no evidence of pericardial effusion. The patient would be hydrated on telemetry. We will check orthostatic vital signs every shift. 2. Rheumatoid arthritis. 3. Neuropathy, on gabapentin. Thank you very much, Dr. Diggs, for allowing me to participate in the care of this patient. Please do not hesitate to contact me for any questions regarding my evaluation. Luis Cummings M.D. DR: EWA JOB#: [id number] CC:
--- NOTE | 2016-09-02 02:46 | History and Physical Report ---
DATE OF ADMISSION: 08/31/2016 CHIEF COMPLAINT: Dizziness. HISTORY OF PRESENT ILLNESS: This is an 81-year-old very delightful female with past medical history significant for rheumatoid arthritis, history of chronic pedal edema, restless legs syndrome, and osteoporosis, who was presented to the emergency room after had a dizziness complained about weakness and altered mental status. The patient was found to have systolic blood pressure of 80s on the field. The paramedics was given a 250 bolus fluids. She probably better at that time and subsequently, the patient was transferred to the hospital. Shortly after initial evaluation in the emergency, the patient had a history of hyponatremia and was noted the patient on Lasix. The patient never had a problem with blood pressure in the past and only she lose the sodium in the urine. The patient has been on the sodium tablets at home as per request by her primary physician. The patient, however, drinks a lot of liquids mostly tea and the patient was found to be anemic and subsequently, the patient was admitted to telemetry due to the dizziness and hypotension. PAST MEDICAL HISTORY/PAST SURGICAL HISTORY: As above. History of restless legs syndrome, rheumatoid arthritis, chronic pedal edema, osteoporosis, urine incontinent, vaginal bleeding was recently evaluated by Dr. Peraza, including an invasive workup essentially was unremarkable. MEDICATIONS AT HOME: Significant for Lasix 40 mg daily, gabapentin 600 mg daily, Protonix 40 mg daily, Mirapex 0.5 daily, VESIcare 10 mg daily, Humira 40 mg subcutaneous daily, Prolia 60 mg every six months, Voltaren as well as Premarin and sodium tablets. ALLERGIES: No known drug allergies. SOCIAL HISTORY: No smoking, alcohol, or drugs. She lives with the , who is a caregiver for the patient. FAMILY HISTORY: Brother had a history of esophageal cancer with history of smoking. REVIEW OF SYSTEMS: Mostly as above. Denies any dysuria, frequency, or hematochezia. Denies any hemoptysis or hematochezia. 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 Denies any loss of consciousness. Denies any suicidal or homicidal ideation. Denies any bowel or urinary incontinence. The patient complained of malaise and fatigue. PHYSICAL EXAMINATION: VITAL SIGNS: Temperature 98.2 degrees, pulse of 67, respirations 16, initial blood pressure was 92/46, repeat one was 119/65. GENERAL: The patient is awake and responsive, no acute distress. HEENT: Head and Neck., pupils reactive to light. Anicteric. Poor vision and blindness. Neck was supple. No JVD. LUNGS: Good air entry. No wheezing or rales. HEART: S1 and S2. Bradycardic. ABDOMEN: Soft, nondistended, and nontender. Positive bowel sounds. EXTREMITIES: No cyanosis or clubbing. Positive +2 edema bilateral lower extremities. NEUROLOGIC: Cranial nerves II through XII are grossly intact. The patient moving all extremities. Gait is intact. LABORATORY AND DIAGNOSTIC DATA: On admission, WBC of 6.6, hemoglobin 10.1, hematocrit 27, MCV 99, and platelet 191,000. ESR 78. Reticulocyte count 1.8. PT of 10, INR 1.0, and PTT of 26. Sodium 134, potassium 4.5, chloride 101, bicarbonate 21, BUN 18, creatinine 0.8, and glucose 160. Lactic acid 1.70. Calcium is 8.1. Troponin less than 0.3. Total protein 6.0. Triglycerides 61. Total cholesterol is 155. Sodium is 134 and potassium 4.5. Urine drug screen is significant for opiates, otherwise all negative. Urinalysis, +2 protein, +5 occult blood, +2 leukocytes, and 5 to 10 RBC. The patient had EKG, which noted to be in a sinus gurdeep with a ventricular rate of 58. No ST elevation was noted. The patient was noted to have T-wave inversion in lead 3 and a Q-wave was noted in leads 1 and aVL. A 2D echo was noted to be normal left ventricular systolic function with ejection fraction 60 to 65%, trace aortic regurgitation, left ventricular diastolic dysfunction grade 1, this is a preliminary results and official report still pending. ASSESSMENT: 1. Syncopal episode most likely orthostatic hypotension. 2. Anemia. 3. Rheumatoid arthritis. 4. Restless legs syndrome. 5. Hyponatremia. 6. Chronic pedal edema. 7. Osteoporosis. 8. Bradycardia. PLAN: Admit the patient to telemetry. We will follow up with Dr. Cummings consultation from Cardiology Electrophysiology and Dr. Griffin, Pulmonary Critical Care. Gentle hydration. Monitor laboratory. Orthostatic hypotension. Duplex of lower extremity. If the patient's status improved consider discharge home to be followed by as outpatient. DVT prophylaxis. Heparin subcutaneous. CODE STATUS: Full Code. Discussed with the extensively at the bedside. Johnathon Diggs M.D. DR: William JOB#: [id number] CC:
[2016-09-02 04:09] VITALS: BP 130/79
--- NOTE | 2016-09-02 06:16 | Consultation ---
DATE OF CONSULTATION: 09/01/2016 NEPHROLOGY CONSULTATION REFERRING PHYSICIAN: Johnathon Diggs M.D. REASON FOR CONSULTATION: Electrolyte abnormality. 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 She presented to [facility] for weakness and altered mental status. In the ER, the patient was found to have hypotension. The patient received a bolus of normal saline. She was consequently admitted in the hospital. Apparently, the patient has a history of hyponatremia and was taking a salt tablet at home, but she was brought in to the ER. In the ER, the patient was found to be mildly hypokalemic and hyponatremic. I was called for management of renal disease and electrolyte imbalance. ALLERGIES: She has allergies to aspirin. MEDICATION: At home including Lasix 40 mg p.o. daily, gabapentin 600 mg p.o. daily, Protonix 40 mg p.o. daily, Mirapex 0.5 mg p.o. daily, Vesicare 10 mg p.o. daily and Tylenol 650 mg q.6 hours p.r.n. pain. SOCIAL HISTORY: She lives at home. Very supportive who was at the bedside and is taking care of her at home. Primary doctor is . REVIEW OF SYSTEMS: General: She complained of generalized weakness. Denied any fever, chills, or night sweats. Head And Neck: Denies any dysphagia, odynophagia, blurry vision, headache, or neck stiffness. Pulmonary: Denies any shortness of breath, cough, or sputum. Cardiovascular: Denies any chest pain or palpitations. Gastrointestinal: Denies any nausea, vomiting, or diarrhea. No hematemesis. No hematochezia. She currently denies any dysuria, frequency, or hematuria. Musculoskeletal: She complained of lower extremity edema and weakness all over. Denies any localized weakness or numbness. PAST SURGICAL HISTORY: History of laser surgery on both eyes for retinal detachment. FAMILY HISTORY: Noncontributory. PHYSICAL EXAMINATION: VITAL SIGNS: The patient has a temperature of 98.0 degrees, blood pressure of 134/61, pulse rate of 67, and respiratory rate of 18. HEAD AND NECK: No JVP. No LAD. No thyromegaly. Extraocular movement intact. Pupils are reactive to light and accommodation. LUNGS: Clear to auscultation. CARDIAC: Regular rate and rhythm. S1-S2. No murmur. No rub. ABDOMEN: Soft, nontender, and nondistended. No organomegaly. EXTREMITIES: Trace edema. No clubbing. No cyanosis. NEUROLOGIC: Cranial nerves II to XII were within normal limits. Upper and lower extremities are grossly intact. LABORATORY STUDIES: On admission, the patient has sodium 134, potassium 4.5, chloride 101, bicarbonate 21, BUN 18, creatinine 0.8, and glucose of 116. Calcium of 8.1. The patient had an AST of 21, ALT of 15, alkaline phosphatase of 68, total protein of 6, and albumin of 2.9. Cholesterol of 155, HDL of 63, and LDL of 80. TSH is 4.2. CBC revealed WBC count of 6, hemoglobin of 10.1, hematocrit of 27, and platelet count of 191,000. Urine revealed specific gravity of 1010, protein 2+, blood 5+, leukocyte esterase 2+ and RBC of 5 to 10. ASSESSMENT: 1. Mild hyponatremia. 2. Hypocalcemia. 3. Hematuria. 4. Proteinuria. 5. Urinary tract infection. 6. Dehydration and hypotension. PLAN: Plan for the patient is to continue with normal saline. Check the random urine protein creatinine ratio to calculate the proteinuria. Check the urine, sodium and creatinine to calculate fractional excretion of sodium. Replace her electrolyte as needed. Check the vitamin D level for evaluation of hypocalcemia. Again, I would like to thank, Dr. Diggs, for allowing me to participate in the care of this patient. Chrissy Owens M.D. DR: OMARI JOB#: [id number] CC:
[2016-09-02 07:54] LABS: BASOPHILS % (AUTO) 0.6 % (0.0-2.0); EOSINOPHILS % (AUTO) 1.9 % (0.0-3.0); MEAN CORPUSCULAR HEMOGLOBIN 33.5 PG (27.0-31.0); MEAN CORPUSCULAR HGB CONC 33.5 G/DL (32.0-36.0); MEAN CORPUSCULAR VOLUME 100 FL (80-99); MEAN PLATELET VOLUME 6.2 FL (6.5-10.1); MONOCYTES % (AUTO) 6.8 % (1.0-10.0); NEUTROPHILS % (AUTO) 41.7 % (45.0-75.0); PLATELET COUNT 194 K/UL (150-450); RED BLOOD COUNT 2.98 M/UL (4.20-5.40); RED CELL DISTRIBUTION WIDTH 13.7 % (11.6-14.8); WHITE BLOOD COUNT 5.5 K/UL (4.8-10.8)
[2016-09-02 08:13] LABS: ALANINE AMINOTRANSFERASE 15 U/L (3-33); ALBUMIN/GLOBULIN RATIO 0.8 (1.0-2.7); ANION GAP 10 (5-15); ASPARTATE AMINO TRANSFERASE 18 U/L (5-40); CALCIUM 8.3 mg/dL (8.6-10.2); CARBON DIOXIDE 24 mEQ/L (20-30); CHLORIDE 103 mEQ/L (98-107); CREATININE 0.9 mg/dL (0.5-0.9); HEMOLYSIS 0; MAGNESIUM 2.1 mg/dL (1.7-2.5); PHOSPHORUS 2.6 mg/dL (2.5-4.8); POTASSIUM 4.5 mEQ/L (3.4-4.9); SODIUM 137 mEQ/L (135-145); TOTAL PROTEIN 6.2 g/dL (6.6-8.7)
[2016-09-02] MEDS: Pramipexole 0.5mg tab ORAL SCH (09:15)
[2016-09-02] MEDS: Solifenacin 10mg tab ORAL SCH (09:15)
[2016-09-02] MEDS: Heparin 5000 units/ml inj SUBQ SCH (09:17)
[2016-09-02 09:44] LABS: THYROID STIMULATING HORMONE 1.67 uIU/mL (0.300-4.500)
--- NOTE | 2016-09-02 10:14 | Pulmonology Progress Note ---
Assessment/Plan Problems: (1) Hypotension (arterial) (2) Overuse of medication (3) Rheumatoid arteritis (4) Anemia (5) Osteoporosis Assessment/Plan improving w/u in process check echo. all noted BP stable hold lasix Subjective ROS Limited/Unobtainable: No Constitutional: Reports: no symptoms HEENT: Repors: no symptoms Respiratory: Reports: no symptoms Allergies: Coded Allergies: No Known Allergies (Unverified , 09/01/16) Objective Last 24 Hour Vital Signs Date Time Temp Pulse Resp B/P Pulse Ox O2 Delivery O2 Flow Rate FiO2 09/02/16 08:00 61 60 74 09/02/16 04:09 98.4 61 18 130/79 95 Room Air 09/02/16 04:00 61 09/02/16 00:23 98.1 66 19 144/74 95 09/02/16 00:00 107 09/01/16 20:12 72 72 82 09/01/16 20:10 98.5 72 18 127/75 93 Room Air 09/01/16 20:00 73 09/01/16 19:16 75 20 Room Air 21 09/01/16 18:09 64 65 63 09/01/16 16:00 59 09/01/16 15:32 97.2 58 18 115/59 98 Room Air 09/01/16 12:00 59 09/01/16 11:46 97.0 58 20 131/65 99 Room Air Intake and Output 09/01/16 09/02/16 19:00 07:00 Intake Total 360 ml Balance 360 ml Intake Oral 360 ml # Voids 3 2 General Appearance: WD/WN HEENT: normocephalic, atraumatic Respiratory/Chest: chest wall non-tender, lungs clear Cardiovascular: normal peripheral pulses, normal rate Abdomen: normal bowel sounds, soft, non tender Genitourinary: normal external genitalia Extremities: no cyanosis Skin: no lesions Neurologic/Psychiatric: corner former II-XII grossly normal Laboratory Tests 09/02/16 07:07: White Blood Count 5.5, Red Blood Count 2.98L, Hemoglobin 10.0L, Hematocrit 29.8L , Mean Corpuscular Volume 100H, Mean Corpuscular Hemoglobin 33.5H, Mean Corpuscular Hemoglobin Concent 33.5, Red Cell Distribution Width 13.7, Platelet Count 194, Mean Platelet Volume 6.2L, Neutrophils (%) (Auto) 41.7L, Lymphocytes (%) (Auto) 49.0H, Monocytes (%) (Auto) 6.8, Eosinophils (%) (Auto) 1.9, Basophils (%) (Auto) 0.6, Sodium Level 137, Potassium Level 4.5, Chloride Level 103, Carbon Dioxide Level 24, Anion Gap 10, Blood Urea Nitrogen 12, Creatinine 0.9, Estimat Glomerular Filtration Rate , Glucose Level 89, Calcium Level 8.3L, Phosphorus Level 2.6, Magnesium Level 2.1, Total Bilirubin 0.2, Aspartate Amino Transf (AST/SGOT) 18, Alanine Aminotransferase (ALT/SGPT) 15, Alkaline Phosphatase 63, Pro-B-Type Natriuretic Peptide 565H, Total Protein 6.2L, Albumin 2.8L, Globulin 3.4, Albumin/Globulin Ratio 0.8L, Thyroid Stimulating Hormone (TSH) 1.670, Free Thyroxine 1.25 Current Medications Medications (Trade) Dose Ordered Sig/Nusrat Route PRN Reason Start Time Stop Time Status Last Admin Dose Admin Acetaminophen (Tylenol) 650 mg Q4H PRN ORAL Fever/Headache/Mild Pain 09/01/16 11:00 10/01/16 10:59 09/02/16 04:11 Al Hydroxide/Mg Hydroxide (Mylanta II) 30 ml Q6H PRN ORAL dyspepsia 08/31/16 21:30 09/30/16 21:29 Albuterol/ Ipratropium (DuoNeb 0.5-3(2.5)mg/3ml) 3 ml Q4H PRN HHN Shortness of Breath 08/31/16 21:30 09/05/16 21:29 Clonidine HCl (Catapres) 0.1 mg Q4H PRN ORAL SBP>160 mmHg 08/31/16 21:30 09/30/16 21:29 Dextrose (Dextrose 50%) STAT PRN IV Hypoglycemia 08/31/16 21:30 09/30/16 21:29 Gabapentin (Neurontin) 600 mg DAILY ORAL 09/01/16 09:00 10/01/16 08:59 09/02/16 09:15 Heparin Sodium (Porcine) (Heparin 5000 units/ml) 5,000 units EVERY 12 HOURS SUBQ 09/01/16 09:00 10/01/16 08:59 09/02/16 09:17 Lorazepam (Ativan 2mg/ml 1ml) 0.5 mg Q4H PRN IV For Anxiety 08/31/16 21:30 09/07/16 21:29 Morphine Sulfate (Morphine Sulfate) 1 mg Q4H PRN IVP Severe Pain (Pain Scale 7-10) 08/31/16 21:30 09/07/16 21:29 Nitroglycerin (Ntg) 0.4 mg Q5M X 3 DOSES PRN SL Prn Chest Pain 08/31/16 21:30 09/30/16 21:29 Ondansetron HCl (Zofran) 4 mg Q6H PRN IVP Nausea & Vomiting 08/31/16 21:30 09/30/16 21:29 Polyethylene Glycol (Miralax) 17 gm HSPRN PRN ORAL Constipation 08/31/16 21:30 09/30/16 21:29 09/02/16 09:15 Pramipexole (Mirapex) 0.5 mg DAILY ORAL 09/01/16 09:00 10/01/16 08:59 09/02/16 09:15 Solifenacin (Vesicare) 10 mg DAILY ORAL 09/01/16 09:00 10/01/16 08:59 09/02/16 09:15 Temazepam (Restoril) 15 mg HSPRN PRN ORAL Insomnia 08/31/16 21:30 09/07/16 21:29 09/01/16 23:31 DELORIS FRYE September 02, 2016 10:14
--- NOTE | 2016-09-03 07:26 | Discharge Summary ---
Discharge Summary Hospital Course Date of Admission August 31, 2016 at 16:47 Date of Discharge September 02, 2016 at 10:45 Admitting Diagnosis hypotension HPI Kristin Barber is a 81 year old female who was admitted on August 31, 2016 at 16:47 for Hypotension Hospital Course This is late entry for 09/02/2016 See dictation The patient was seen and examined at bedside and all new and available data was reviewed in the patients chart. Date Time Temp Pulse Resp B/P Pulse Ox O2 Delivery O2 Flow Rate FiO2 09/02/16 08:00 61 60 74 09/02/16 04:09 98.4 61 18 130/79 95 Room Air 09/02/16 04:00 61 09/02/16 00:23 98.1 66 19 144/74 95 09/02/16 00:00 107 09/01/16 20:12 72 72 82 09/01/16 20:10 98.5 72 18 127/75 93 Room Air 09/01/16 20:00 73 09/01/16 19:16 75 20 Room Air 21 09/01/16 18:09 64 65 63 09/01/16 16:00 59 09/01/16 15:32 97.2 58 18 115/59 98 Room Air 09/01/16 12:00 59 09/01/16 11:46 97.0 58 20 131/65 99 Room Air Intake and Output 09/01/16 09/02/16 19:00 07:00 Intake Total 360 ml Balance 360 ml Intake Oral 360 ml # Voids 3 2 HEAD AND NECK: No JVP. Extraocular movement intact. Pupils are reactive to light and accommodation. LUNGS: Clear to auscultation, No Wheeze or Rales. CARDIAC: Regular rate and rhythm. S1-S2. No murmur. ABDOMEN: Soft, nontender, and nondistended. + BS. EXTREMITIES: Trace edema. No clubbing. No cyanosis. NEUROLOGIC: Cranial nerves II to XII were within normal limits. Upper and lower extremities are grossly intact. Gait intact. Diagnosis: 1. Mild hyponatremia. 2. Hypocalcemia. 3. Hematuria. 4. Proteinuria. 5. Urinary tract infection. 6. Dehydration and hypotension. Plan: DC Home. F/U with Dr. Smith within 1 week (Patient was seen earlier today. Signature timestamp does not reflect patient encounter time) Johnathon Diggs MD Discharge Discharge Disposition Patient was discharged to Home (01) Discharge Diagnoses: Johnathon Diggs MD September 03, 2016 07:26
--- NOTE | 2016-09-04 03:16 | Discharge Summary ---
DATE OF ADMISSION: 08/31/2016 DATE OF DISCHARGE: 09/02/2016 HOSPITAL COURSE: This is an 81-year-old, very delightful female with past medical history significant for rheumatoid arthritis, chronic pedal edema, restless legs syndrome, and osteoporosis, who has presented to emergency room complaining about dizziness and weakness. Shortly after initial evaluation, the patient was noted to be hypotensive with a systolic of 80 and the patient subsequently was admitted to the hospital due to hyponatremia, hypotension, hypovolemia, as well as syncope due to the orthostatic hypotension. Throughout the hospital course, the patient was followed by Dr. Cummings from Cardiology, Dr. Griffin from Pulmonary Critical Care, and Dr. Owens from Nephrology. The patient received gentle hydration and her status gradually improved and subsequently was discharged home to be followed up with Dr. Smith as outpatient. FINAL DIAGNOSES: 1. Syncope most likely secondary to orthostatic hypotension as well as hypovolemia. 2. Anemia. 3. Rheumatoid arthritis. 4. Restless legs syndrome. 5. Hyponatremia, resolved. 6. Chronic pedal edema. 7. Osteoporosis. 8. Bradycardia. MEDICATION ON DISCHARGE: Continue discharge medication list. ACTIVITY: As tolerated. DIET: Low-salt diet. FOLLOWUP: Advised the patient to follow up with Dr. Smith within one to two weeks. Johnathon Diggs M.D. DR: RICHELLE JOB#: [id number] CC: SUNNY
== END 2016-09-02 10:45 | disposition home or self-care (01) | DRG 312 ==
LOC: EDBD 16:05 → EMR 16:45 → 2E 16:47 → EDBEDREQ 19:58
DX: I95.1 Orthostatic hypotension (principal); E87.1 Hypo-osmolality and hyponatremia; R00.1 Bradycardia, unspecified; N39.0 Urinary tract infection, site not specified; E86.0 Dehydration; E86.1 Hypovolemia; D64.9 Anemia, unspecified; M06.9 Rheumatoid arthritis, unspecified; G25.81 Restless legs syndrome; R60.9 Edema, unspecified; M81.0 Age-related osteoporosis without current pathological fracture; E83.51 Hypocalcemia; Z88.6 Allergy status to analgesic agent; Z91.14 Patient's other noncompliance with medication regimen
CPT/HCPCS: 36415; 71010; 80053; 80061; 80300; 81003; 82378; 82550; 82607; 82746; 82962; 83540; 83550; 83605; 83615; 83735; 83880; 84100; 84439; 84443; 84484; 85007; 85025; 85044; 85060; 85610; 85651; 85730; 87040; 93005; 93306; 93880; 93970; 94664; J2405

== ENCOUNTER 2018-10-03 13:54 | Emergency (ER) | payer MEDICARE, OTHER ==
[~2018-10-03] VITALS: Ht 167.6 cm; Wt 56.7 kg
[~2018-10-03 13:54] MED LIST changes: +ACETAMINOPHEN-1 EAC4 ORAL; +ALBUTEROL SULF8.5 GM INH; +FUROSEMIDE40 MG ORAL; +GABAPENTIN600 MG ORAL; +HUMIRA40 MG/0.2 SUBQ; +PANTOPRAZOLE SO40 MG ORAL; +PRAMIPEXOLE D0.25 MG ORAL; +PREMARIN42.5 GM VG; +PROLIA60 MG/1 ML SUBQ; +SODIUM TABLET PO; +TESSALON PERLE100 MG ORAL; +TYLENOL325 MG ORAL; +VESICARE10 MG ORAL; +VOLTAREN100 G1 TP; +ZOFRAN4 M1 ORAL
--- NOTE | 2018-10-03 14:15 | NUR ---
ED Nurse Note: Patient presents to ER due to gum irritation since this morning and headache. Patient uses same dentures for the past 5 years. No bleeding from gum noted. Patient c/o anterior headache without N/V since this morning. Repors no weakness. Ambulated to the room with steady gait. Strong equal hand general operator noted. No changes in her speech pattern. No facial droop or arm drift noted. Caregiver at bedside.
--- NOTE | 2018-10-03 14:16 | Emergency Room Report ---
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 reports that she has been eating less than usual Denies any fevers denies any vomiting or diarrhea denies any visual changes Allergies: Coded Allergies: No Known Allergies (Unverified , 09/01/16) Patient History Past Medical History: see triage record Pertinent Family History: none Reviewed Nursing Documentation: PMH: Agreed; PSxH: Agreed Nursing Documentation-PMH Past Medical History: No History, Except For Hx Cardiac Problems: No - LEGALLY BLIND Hx Hypertension: No Hx Pacemaker: No - HYPONATREMIA Hx Asthma: No - RA Hx COPD: No Hx Diabetes: No Hx Cancer: No Hx Gastrointestinal Problems: No Hx Dialysis: No Hx Neurological Problems: No Hx Cerebrovascular Accident: Yes Hx Seizures: No Hx Speech Problem: Yes - SINCE THE STROKE Hx Dizziness: Yes - Today Review of Systems All Other Systems: negative except mentioned in HPI Physical Exam Vital Signs Date Time Temp Pulse Resp B/P (MAP) Pulse Ox O2 Delivery O2 Flow Rate FiO2 10/03/18 13:56 97.9 86 17 138/74 (95) 98 Room Air Sp02 EP Interpretation: reviewed, normal General Appearance: well appearing, no apparent distress Head: normocephalic, atraumatic Eyes: bilateral eye PERRL, bilateral eye EOMI ENT: TMs + canals normal, uvula midline, other - After removal of the patient' s dentures there is some mild irritation at the anterior superior frenulum region no obvious laceration or blister formation Neck: full range of motion, supple, no meningismus, no bony tend Respiratory: lungs clear, normal breath sounds, no rhonchi, no respiratory distress, no retraction, no accessory muscle use Cardiovascular #1: normal peripheral pulses, regular rate, rhythm, no edema, no gallop, no JVD, no murmur Gastrointestinal: normal bowel sounds, non tender, soft, no mass, no organomegaly, non-distended, no guarding, no hernia, no pulsatile mass, no rebound Genitourinary: no CVA tenderness Musculoskeletal: normal inspection Neurologic: oriented x3, responsive, rn concurrent review III-XII nml as tested, motor strength/ tone normal, sensory intact Psychiatric: mood/affect normal Skin: normal color, no rash, warm/dry, palpation normal Lymphatic: normal inspection, no adenopathy Medical Decision Making Diagnostic Impression: Primary Impression: Headache Additional Impression: Gingivitis ER Course given the patient's history the patient's per gum area appears mildly irritated likely secondary to irritation from the dentures Given some of the patient's other complaint such as headache I did obtain baseline blood work given the patient's previous low sodium levels Also IV hydration this returns normal patient remains at baseline levels and will have close outpatient follow-up Labs Test 10/03/18 14:21 White Blood Count 7.0 K/UL (4.8-10.8) Red Blood Count 3.47 M/UL (4.20-5.40) Hemoglobin 11.3 G/DL (12.0-16.0) Hematocrit 33.5 % (37.0-47.0) Mean Corpuscular Volume 96 FL (80-99) Mean Corpuscular Hemoglobin 32.4 PG (27.0-31.0) Mean Corpuscular Hemoglobin Concent 33.6 G/DL (32.0-36.0) Red Cell Distribution Width 12.3 % (11.6-14.8) Platelet Count 221 K/UL (150-450) Mean Platelet Volume 6.6 FL (6.5-10.1) Neutrophils (%) (Auto) 64.0 % (45.0-75.0) Lymphocytes (%) (Auto) 24.4 % (20.0-45.0) Monocytes (%) (Auto) 10.0 % (1.0-10.0) Eosinophils (%) (Auto) 0.8 % (0.0-3.0) Basophils (%) (Auto) 0.8 % (0.0-2.0) Sodium Level 134 MMOL/L (136-145) Potassium Level 4.3 MMOL/L (3.5-5.1) Chloride Level 100 MMOL/L (98-107) Carbon Dioxide Level 26 MMOL/L (21-32) Anion Gap 9 mmol/L (5-15) Blood Urea Nitrogen 16 mg/dL (7-18) Creatinine 1.1 MG/DL (0.55-1.30) Estimat Glomerular Filtration Rate mL/min (>60) Glucose Level 112 MG/DL (74-106) Calcium Level 9.1 MG/DL (8.5-10.1) Total Bilirubin 0.4 MG/DL (0.2-1.0) Aspartate Amino Transf (AST/SGOT) 29 U/L (15-37) Alanine Aminotransferase (ALT/SGPT) 30 U/L (12-78) Alkaline Phosphatase 96 U/L (46-116) Total Protein 7.3 G/DL (6.4-8.2) Albumin 3.4 G/DL (3.4-5.0) Globulin 3.9 g/dL Albumin/Globulin Ratio 0.9 (1.0-2.7) Last Vital Signs Date Time Temp Pulse Resp B/P (MAP) Pulse Ox O2 Delivery O2 Flow Rate FiO2 10/03/18 13:56 97.9 86 17 138/74 (95) 98 Room Air Status: improved Disposition: HOME, SELF-CARE Condition: Improved Scripts [viscous lidocaine 1%] No Conflict Check BID Prov: Chucho Marquez DO 10/03/18 Additional Instructions: Patient is provided with the discharge instructions notified to follow up with primary doctor in the next 2-3 days otherwise return to the er with any worsening symptoms. Please note that this report is being documented using [employer] technology. This can lead to erroneous entry secondary to incorrect interpretation by the dictating instrument. Chucho Marquez DO Oct 03, 2018 14:16
[2018-10-03 14:37] VITALS: BP 135/76
[2018-10-03 14:42] LABS: BASOPHILS % (AUTO) 0.8 % (0.0-2.0); EOSINOPHILS % (AUTO) 0.8 % (0.0-3.0); HEMATOCRIT 33.5 % (37.0-47.0); HEMOGLOBIN 11.3 G/DL (12.0-16.0); LYMPHOCYTES % (AUTO) 24.4 % (20.0-45.0); MEAN CORPUSCULAR VOLUME 96 FL (80-99); PLATELET COUNT 221 K/UL (150-450); RED BLOOD COUNT 3.47 M/UL (4.20-5.40); RED CELL DISTRIBUTION WIDTH 12.3 % (11.6-14.8)
[2018-10-03 14:48] LABS: ANION GAP 9 mmol/L (5-15); BLOOD UREA NITROGEN 16 mg/dL (7-18); CALCIUM 9.1 MG/DL (8.5-10.1); CARBON DIOXIDE 26 MMOL/L (21-32); CHLORIDE 100 MMOL/L (98-107); CREATININE 1.1 MG/DL (0.55-1.30); POTASSIUM 4.3 MMOL/L (3.5-5.1); SODIUM 134 MMOL/L (136-145)
--- NOTE | 2018-10-03 14:48 | NUR ---
ED Nurse Note: Patient c/o dizziness @ 1437, lasted for few minutes. Patient remained awake, alert, oriented x 4. No changes in her speech. Equal hand security ambassador noted. No arm or leg drift noted. Accu check was 97mg/dl. Denies any dizziness or headache at this time. Dr. Marquez notified and made aware.
[2018-10-03 14:55] LABS: ALANINE AMINOTRANSFERASE 30 U/L (12-78); ALBUMIN 3.4 G/DL (3.4-5.0); ALBUMIN/GLOBULIN RATIO 0.9 (1.0-2.7); ALKALINE PHOSPHATASE 96 U/L (46-116); ASPARTATE AMINO TRANSFERASE 29 U/L (15-37); BILIRUBIN,TOTAL 0.4 MG/DL (0.2-1.0)
[2018-10-03] MEDS ORDERED: VISCOUS LIDOCAINE (15:17)
[2018-10-03 15:20] VITALS: BP 134/69
--- NOTE | 2018-10-03 15:24 | NUR ---
ED Nurse Note: Patient resting comfortably in bed. Caregiver at bedside. Reports no headache or dizziness.
--- NOTE | 2018-10-03 15:37 | NUR ---
ED Nurse Note: Patient is being discharged from medical care. D/C instruction and prescription given to patient and caregiver. All questions were answered. ID band and IV removed. Ambulating out with steady gait with all her belongings.
== END 2018-10-03 15:38 | disposition home or self-care (01) ==
LOC: EMR 14:33
DX: R51 Headache (principal); K05.10 Chronic gingivitis, plaque induced; Z86.73 Personal history of transient ischemic attack (TIA), and cerebral infarction without residual deficits
CPT/HCPCS: 36415; 80053; 82962; 85025; 96360; 99284